=== PATIENT | female | born 2000 | race Caucasian/White ===

== ENCOUNTER 2022-04-04 02:29 | Emergency (ER) | payer OTHER ==
[~2022-04-04] VITALS: Ht 157.5 cm; Wt 68.0 kg
[2022-04-04 02:35] VITALS: BP 111/70
--- NOTE | 2022-04-04 02:37 | NUR ---
TO LOBBY A/W BED AMBULATORY
--- NOTE | 2022-04-04 03:20 | NUR ---
SEEN AND EXAMINED BY MATTHEW
[2022-04-04] MEDS ORDERED: ACETAMINOPHEN EXTRA STRENGTH 500 MG TAB PO ONE (03:50)
--- NOTE | 2022-04-04 04:09 | NUR ---
rad at bedside.
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
--- NOTE | 2022-04-04 04:36 | NUR ---
PT TAKEN TO CT VIA [facility].
--- NOTE | 2022-04-04 04:44 | NUR ---
PT BACK FROM CT.
--- NOTE | 2022-04-04 05:34 | NUR ---
pt appears to be resting. eyes are closed, opens to sound. equal rise and fall of chest wall. bed locked in lowest position, side rails x2 for safety. pt is on monitor.
[2022-04-04 06:05] VITALS: BP 118/52
--- NOTE | 2022-04-04 06:05 | NUR ---
Patient discharged with v/s stable. Written and verbal after care instructions given and explained. Patient verbalized understanding. Ambulatory with steady gait. All questions addressed prior to discharge. Advised to follow up with PMD.
== END 2022-04-04 06:05 | disposition home or self-care (01) ==
LOC: MED 02:29
DX: S52.602A Unspecified fracture of lower end of left ulna, initial encounter for closed fracture (principal); V49.9XXA Car occupant (driver) (passenger) injured in unspecified traffic accident, initial encounter; Y93.89 Activity, other specified; Y92.89 Other specified places as the place of occurrence of the external cause; Y99.8 Other external cause status
CPT/HCPCS: 29125; 70450; 73110; 99284; Q0092

== ENCOUNTER 2023-01-12 11:26 | Emergency (ER) | payer OTHER ==
[~2023-01-12] VITALS: Ht 152.4 cm; Wt 59.9 kg
[2023-01-12 11:33] VITALS: BP 112/61
[2023-01-12] MEDS ORDERED: LIDOCAINE MPF 1% 10 MG/ML VIAL INJ ONE (12:10)
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
--- NOTE | 2023-01-12 13:03 | NUR ---
PA WORD AT BEDSIDE.
[2023-01-12] MEDS ORDERED: BACITRACIN OINT 500 UNITS/GM PKT TP ONE (13:20)
== END 2023-01-12 13:31 | disposition home or self-care (01) ==
LOC: MED 11:26
DX: S01.112A Laceration without foreign body of left eyelid and periocular area, initial encounter (principal); W22.8XXA Striking against or struck by other objects, initial encounter; Y92.89 Other specified places as the place of occurrence of the external cause; Y93.89 Activity, other specified; Y99.8 Other external cause status
CPT/HCPCS: 12011; 99282; J2001